=== PATIENT | male | born 1975 | race American Indian/Alaskan Native ===

== ENCOUNTER 2017-03-09 08:19 | Emergency (ER) | payer OTHER ==
[2017-03-09 08:46] VITALS: BP 128/90
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
== END 2017-03-09 12:51 | disposition home or self-care (01) ==
LOC: ED 08:19
DX: M54.5 Low back pain (principal); M62.830 Muscle spasm of back; J45.909 Unspecified asthma, uncomplicated; F17.200 Nicotine dependence, unspecified, uncomplicated
CPT/HCPCS: 99282